=== PATIENT | male | born 1990 | race Caucasian/White ===

== ENCOUNTER 2019-09-15 20:31 | Emergency (ER) | payer OTHER ==
[~2019-09-15] VITALS: Ht 177.8 cm; Wt 111.1 kg
[2019-09-15 20:35] VITALS: BP_SYST 145
--- NOTE | 2019-09-15 22:09 | NUR ---
Patient to ER bed 7 to gown for evaluation. Side rails up. Report given to Pollo BYERS.
--- NOTE | 2019-09-15 22:30 | NUR ---
Patient c/o of body aches, cough, chills and right lower tooth ache since Thursday. Pt denies and N/V or diarrhea. No other injuries/complaints per patient or noted.
--- NOTE | 2019-09-15 23:14 | NUR ---
ER Dr. Swanson at bedside examining patient.
[2019-09-16 01:27] VITALS: BP_SYST 136
--- NOTE | 2019-09-16 01:27 | NUR ---
Patient given written and verbal discharge instructions and verbalizes understanding. ER MD discussed with patient the results and treatment provided. Patient in stable condition. ID arm band removed. Rx of Bromfed DM given. Patient educated on pain management and to follow up with PMD. Pain Scale 0. Opportunity for questions provided and answered. Medication side effect fact sheet provided.
== END 2019-09-16 01:27 | disposition home or self-care (01) ==
LOC: SED 20:31
DX: J06.9 Acute upper respiratory infection, unspecified (principal); K08.89 Other specified disorders of teeth and supporting structures
CPT/HCPCS: 99282